=== PATIENT | male | born 1980 | race Caucasian/White ===

== ENCOUNTER 2020-10-01 20:00 | Emergency (ER) | payer MEDICARE ==
[~2020-10-01] VITALS: Ht 172.7 cm; Wt 84.0 kg
[2020-10-01 20:05] VITALS: BP 152/99
[2020-10-01] MEDS ORDERED: SODIUM CHLORIDE 0.9% 1,000 ML IV ONE (20:30)
== END 2020-10-01 23:16 | disposition left against medical advice (07) ==
LOC: ER 20:00
DX: T83.018A Breakdown (mechanical) of other urinary catheter, initial encounter (principal); Y84.6 Urinary catheterization as the cause of abnormal reaction of the patient, or of later complication, without mention of misadventure at the time of the procedure; Y92.9 Unspecified place or not applicable
CPT/HCPCS: 99283; J7030; 93005